=== PATIENT | female | born 1940 | race Caucasian/White ===

== ENCOUNTER 2016-12-30 15:25 | Emergency (ER) | payer OTHER, BC ==
[~2016-12-30] VITALS: Ht 165.1 cm; Wt 71.9 kg
[2016-12-30] MEDS ORDERED: VALSARTAN320 MG PO (16:20)
[2016-12-30] MEDS ORDERED: RANITIDINE HCL150 MG PO (16:21)
[2016-12-30] MEDS ORDERED: PROCHLORPERAZIN10 MG PO (16:22)
[2016-12-30] MEDS ORDERED: HYDROXYZINE HCL10 MG PO (16:22)
[2016-12-30] MEDS ORDERED: KENALOG,ARISTOC15 G1 TP (16:23)
[2016-12-30] MEDS ORDERED: CALCIUM500 M4 PO (16:24)
[2016-12-30] MEDS ORDERED: BIOTIN5000 MCG PO (16:24)
[2016-12-30] MEDS ORDERED: DAILY VALUE1 EACH PO (16:24)
[2016-12-30] MEDS ORDERED: GINGER ROOT550 MG PO (16:25)
[2016-12-30] MEDS ORDERED: FISH OIL300 MG PO (16:25)
[2016-12-30] MEDS ORDERED: ASMANEX TW200 MICRO1 IH (16:25)
[2016-12-30] MEDS ORDERED: ASCORBIC ACID100 MG PO (16:26)
[2016-12-30] MEDS ORDERED: MONTELUKAST SOD10 MG PO (16:26)
[2016-12-30] MEDS ORDERED: ULTRAM50 MG PO (19:09)
[2016-12-30 19:45] VITALS: BP 166/98
== END 2016-12-30 19:45 | disposition home or self-care (01) ==
LOC: EME 15:25
DX: S20.211A Contusion of right front wall of thorax, initial encounter (principal); I10 Essential (primary) hypertension; Z88.6 Allergy status to analgesic agent; Z88.0 Allergy status to penicillin; W19.XXXD Unspecified fall, subsequent encounter
CPT/HCPCS: 71020; 99281; 99285; J3010